=== PATIENT | male | born 1975 | race Caucasian/White ===

== ENCOUNTER 2021-12-18 16:19 | Emergency (ER) | payer OTHER ==
[~2021-12-18 16:19] MED LIST: HYDROCODON-ACE1 EAC2 PO; LORTAB 7.5-3251 EACH PO; MORPHINE SULFAT15 M1 PO; PEPCID40 MG PO; REMERON45 M1 PO; WELLBUTRIN XL300 MG PO
[2021-12-18] MEDS ORDERED: OMNICEF 300 MG300 MG PO (20:10)
[2021-12-18] MEDS ORDERED: IBU600 MG PO (20:10)
== END 2021-12-18 20:45 | disposition home or self-care (01) ==
LOC: ER1 16:19
DX: S61.312A Laceration without foreign body of right middle finger with damage to nail, initial encounter (principal); F17.220 Nicotine dependence, chewing tobacco, uncomplicated; W26.0XXA Contact with knife, initial encounter; Y92.009 Unspecified place in unspecified non-institutional (private) residence as the place of occurrence of the external cause
CPT/HCPCS: 12001; 99283